=== PATIENT | male | born 1960 | race Caucasian/White ===

== ENCOUNTER → 2016-12-22 | Outpatient (CLI) | payer OTHER ==
[~2016-12-22] MED LIST: MOTRIN800 MG PO
== END | disposition home or self-care (01) ==
LOC: RAD 19:01
DX: M79.645 Pain in left finger(s) (principal); Z91.81 History of falling

== ENCOUNTER → 2017-05-20 | Outpatient (CLI) | payer OTHER ==
[2017-05-20 09:36] LABS: BASO # 0.1 10*3/uL (0.0-0.1); BASO % 1.3 % (0.0-1.0); EOS # 0.7 10*3/uL (0.0-0.4); EOS % 9.2 % (1.0-4.0); HEMATOCRIT 40.5 % (42.0-52.0); HEMOGLOBIN 13.4 g/dl (14.0-18.0); LYMPH % 28.1 % (27.0-41.0); MEAN CELL VOLUME 81.5 fl (80.0-94.0); MEAN CORPUSCULAR HGB CONC 33.1 g/dl (33.0-37.0); MEAN PLATELET VOLUME 10.3 fl (9.6-12.3); MONO # 0.7 10*3/uL (0.1-1.0); MONO % 10.3 % (3.0-9.0); NEUT # 3.6 10*3/uL (2.3-7.9); NEUT % 50.7 % (47.0-73.0); PLATELET COUNT AUTOMATED 263 10*3/uL (130-400); RED BLOOD COUNT 4.97 10*6/uL (4.50-5.90); RED CELL DISTRI WIDTH 13.9 % (0-14.5); WHITE BLOOD COUNT 7.1 10*3/uL (4.8-10.8)
[2017-05-20 10:04] LABS: ALBUMIN 3.8 gm/dl (3.1-4.5); ALKALINE PHOSPHATASE 84 U/L (45-117); BUN 20 mg/dl (7-24); CHLORIDE 107 mmol/L (98-107); CHOLESTEROL 129 mg/dL (<200); CREATININE 0.76 mg/dL (0.70-1.30); HDL CHOLESTEROL 43 mg/dl (40-60); LDL CHOLESTEROL 68 mg/dL (9-159); POTASSIUM 4.1 mmol/L (3.5-5.1); SGOT/AST 16 IU/L (3-35); SGPT/ALT 28 U/L (12-78); SODIUM 141 mmol/L (136-145); TOTAL PROTEIN 7.3 gm/dL (6.4-8.2); TRIGLYCERIDES 88 mg/dl (<150); VLDL CHOLESTEROL 18 mg/dL (6-40)
== END | disposition home or self-care (01) ==
LOC: LAB 09:00
PROVIDERS: Internal Medicine
DX: I10 Essential (primary) hypertension (principal); E78.2 Mixed hyperlipidemia

== ENCOUNTER → 2017-07-11 | Outpatient (CLI) | payer OTHER | END | disposition home or self-care (01) | LOC: ORTHO 00:59 | DX: G56.02 Carpal tunnel syndrome, left upper limb (principal) ==

== ENCOUNTER → 2017-08-23 | Outpatient (CLI) | payer OTHER ==
[~2017-08-23] MED LIST changes: +ATORVASTATIN CA10 M1 PO; +IBU800 M1 PO; +VALSARTAN160 MG PO
[2017-08-23 15:16] LABS: BASO # 0.1 10*3/uL (0.0-0.1); BASO % 1.5 % (0.0-1.0); EOS # 0.5 10*3/uL (0.0-0.4); EOS % 8.1 % (1.0-4.0); HEMATOCRIT 43.4 % (42.0-52.0); HEMOGLOBIN 14.5 g/dl (14.0-18.0); LYMPH % 30.5 % (27.0-41.0); MEAN CELL VOLUME 81.3 fl (80.0-94.0); MEAN CORPUSCULAR HGB 27.2 pg (27.0-31.0); MEAN CORPUSCULAR HGB CONC 33.4 g/dl (33.0-37.0); MEAN PLATELET VOLUME 10.4 fl (9.6-12.3); MONO # 0.7 10*3/uL (0.1-1.0); NEUT # 3.2 10*3/uL (2.3-7.9); NEUT % 48.6 % (47.0-73.0); PLATELET COUNT AUTOMATED 276 10*3/uL (130-400); RED BLOOD COUNT 5.34 10*6/uL (4.50-5.90); RED CELL DISTRI WIDTH 14.4 % (0-14.5); WHITE BLOOD COUNT 6.7 10*3/uL (4.8-10.8)
[2017-08-23 15:25] LABS: BUN 20 mg/dl (7-24); CHLORIDE 106 mmol/L (98-107); POTASSIUM 3.7 mmol/L (3.5-5.1); SODIUM 139 mmol/L (136-145)
== END | disposition home or self-care (01) ==
LOC: LAB 13:32
PROVIDERS: Orthopaedic Surgery
DX: Z01.818 Encounter for other preprocedural examination (principal); I10 Essential (primary) hypertension; Z87.891 Personal history of nicotine dependence; G56.02 Carpal tunnel syndrome, left upper limb

== ENCOUNTER → 2017-08-29 | Day surgery (SDC) | payer OTHER ==
[2017-08-23 13:58] VITALS: BP 143/82
[~2017-08-29] VITALS: Ht 167.6 cm; Wt 97.5 kg
[~2017-08-29] MED LIST changes: +PERCOCET 5-3251 EACH PO; +ZOFRAN4 MG PO
[2017-08-29 07:08] VITALS: BP 116/62
[2017-08-29 08:08] VITALS: BP 115/75
[2017-08-29 08:23] VITALS: BP 116/81
[2017-08-29 08:37] VITALS: BP 124/76
== END ==
LOC: SDC 08-23 14:00
DX: G56.02 Carpal tunnel syndrome, left upper limb (principal); M65.9 Synovitis and tenosynovitis, unspecified; I10 Essential (primary) hypertension; E78.00 Pure hypercholesterolemia, unspecified; Z98.890 Other specified postprocedural states; Z82.49 Family history of ischemic heart disease and other diseases of the circulatory system; Z87.891 Personal history of nicotine dependence

== ENCOUNTER → 2018-03-09 | Day surgery (SDC) | payer OTHER ==
[~2018-03-09] VITALS: Ht 167.6 cm; Wt 104.3 kg
--- NOTE | ~2018-03-09 | PROC NOTE ---
[place], [place] PROCEDURE NOTE [id number] UNIT #: [id number] ROOM: DOCTOR: ANDREE RAMOS MD BIRTHDATE: [birth year] DOS: 03/09/2018 PREOPERATIVE DIAGNOSIS: Screening examination. POSTOPERATIVE DIAGNOSIS: Normal colon. PROCEDURE: Colonoscopy. ENDOSCOPIST: Andree Ramos MD SURVEY FIELD TECHNICIAN: VALERIY. ANESTHESIA: MAC. INDICATIONS: This is a 57-year-old gentleman who is here for a screening examination. The procedure and its complications were explained to the patient in detail preoperatively. Complications that were discussed included, but were not limited to bleeding, missed lesions, colon perforation, and prolonged pain. He agreed to proceed. DESCRIPTION OF PROCEDURE: After identifying the patient, the patient was brought to the operating suite and laid in the left lateral position. After IV sedation was administered, a timeout procedure was called and a digital rectal exam was performed. This was within normal limits. An adult colonoscope was now introduced into the anal canal and advanced sequentially into the rectum, sigmoid colon, descending colon, transverse colon and ascending colon right up to the cecum. Upon reaching the cecum, the scope was withdrawn. Total withdrawal time was approximately 6 minutes and 50 seconds. There were no obvious lesions that could be identified during the process of the withdrawal. This was confirmed upon visualizing the entire colon. Upon reaching the rectum, the scope was withdrawn and the patient was brought back to the recovery room in stable fashion. There were no complications. Dr. Andree Ramos, the attending endoscopist, was present throughout the operating case. Based on these findings, the patient is recommended to have another colonoscopy in 10 years or sooner if he developed any new complications or any new symptoms. These findings were discussed with the patient's in the recovery room. Andree Ramos MD CM:PROCNOTE:PROCEDURE NOTE ANDREE RAMOS MD
[2018-03-09 08:35] VITALS: BP 131/69
[2018-03-09 09:19] VITALS: BP 122/68
[2018-03-09 09:34] VITALS: BP 121/74
[2018-03-09 09:49] VITALS: BP 162/80
== END | disposition home or self-care (01) ==
LOC: SDC 03-02 04:06
DX: Z12.11 Encounter for screening for malignant neoplasm of colon (principal); I10 Essential (primary) hypertension; E78.00 Pure hypercholesterolemia, unspecified; M19.90 Unspecified osteoarthritis, unspecified site; E66.9 Obesity, unspecified; Z68.37 Body mass index [BMI] 37.0-37.9, adult; Z98.890 Other specified postprocedural states; Z79.899 Other long term (current) drug therapy

== ENCOUNTER → 2019-12-27 | Outpatient (CLI) | payer SELFPAY | END | disposition home or self-care (01) | LOC: RESCLI 08:41 | DX: I10 Essential (primary) hypertension (principal); E55.9 Vitamin D deficiency, unspecified; M19.131 Post-traumatic osteoarthritis, right wrist; E78.2 Mixed hyperlipidemia; J30.1 Allergic rhinitis due to pollen; G56.02 Carpal tunnel syndrome, left upper limb; E66.01 Morbid (severe) obesity due to excess calories; E78.1 Pure hyperglyceridemia; R73.9 Hyperglycemia, unspecified; G89.29 Other chronic pain; M54.5 Low back pain; Z98.890 Other specified postprocedural states; Z76.89 Persons encountering health services in other specified circumstances; Z79.899 Other long term (current) drug therapy ==

== ENCOUNTER → 2020-01-06 | Outpatient (CLI) | payer SELFPAY | END | disposition home or self-care (01) | LOC: LAB 09:35 | DX: E55.9 Vitamin D deficiency, unspecified (principal); Z76.89 Persons encountering health services in other specified circumstances ==

== ENCOUNTER → 2020-01-14 | Outpatient (CLI) | payer SELFPAY | END | disposition home or self-care (01) | LOC: RESCLI 01:44 | DX: E55.9 Vitamin D deficiency, unspecified (principal); I10 Essential (primary) hypertension; E78.2 Mixed hyperlipidemia; M19.90 Unspecified osteoarthritis, unspecified site; Z79.899 Other long term (current) drug therapy; Z98.890 Other specified postprocedural states ==

== ENCOUNTER → 2020-04-28 | Outpatient (CLI) | payer SELFPAY | END | disposition home or self-care (01) | LOC: RESCLI 00:38 | PROVIDERS: ATTEND Internal Medicine | DX: Z23 Encounter for immunization (principal); M54.5 Low back pain; E55.9 Vitamin D deficiency, unspecified; I10 Essential (primary) hypertension; E78.2 Mixed hyperlipidemia ==

== ENCOUNTER → 2020-11-24 | Outpatient (CLI) | payer SELFPAY ==
[2020-11-24 09:38] LABS: BASO # 0.1 10*3/uL (0.0-0.1); BASO % 1.1 % (0.0-1.0); EOS # 0.8 10*3/uL (0.0-0.4); EOS % 9.9 % (1.0-4.0); HEMATOCRIT 42.4 % (42.0-52.0); LYMPH # 1.7 10*3/uL (1.3-4.4); LYMPH % 21.4 % (27.0-41.0); MEAN CORPUSCULAR HGB 26.8 pg (27.0-31.0); MEAN CORPUSCULAR HGB CONC 32.3 g/dl (33.0-37.0); MEAN PLATELET VOLUME 10.1 fl (9.6-12.3); MONO # 0.9 10*3/uL (0.1-1.0); MONO % 10.8 % (3.0-9.0); NEUT # 4.6 10*3/uL (2.3-7.9); NEUT % 56.6 % (47.0-73.0); PLATELET COUNT AUTOMATED 262 10*3/uL (130-400); RED BLOOD COUNT 5.11 10*6/uL (4.50-5.90); RED CELL DISTRI WIDTH 14.4 % (0-14.5); WHITE BLOOD COUNT 8.1 10*3/uL (4.8-10.8)
[2020-11-24 10:08] LABS: ALBUMIN 3.9 gm/dl (3.1-4.5); ALKALINE PHOSPHATASE 70 U/L (45-117); BUN 20 mg/dl (7-24); CHLORIDE 105 mmol/L (98-107); CHOLESTEROL 232 mg/dL (<200); LDL CHOLESTEROL 140 mg/dL (9-159); SGOT/AST 27 IU/L (3-35); SGPT/ALT 42 U/L (12-78); SODIUM 137 mmol/L (136-145); TOTAL PROTEIN 7.4 gm/dL (6.4-8.2); TRIGLYCERIDES 268 mg/dl (<150)
[2020-11-24 10:51] LABS: VITAMIN D, 25-HYDROXY 24.8 ng/mL (30-100)
== END | disposition home or self-care (01) ==
LOC: RESCLI 00:19
PROVIDERS: Student in an Organized Health Care Education/Training Program; ATTEND Internal Medicine
DX: M54.5 Low back pain (principal); I10 Essential (primary) hypertension; E55.9 Vitamin D deficiency, unspecified; E78.2 Mixed hyperlipidemia; Z79.899 Other long term (current) drug therapy; Z98.890 Other specified postprocedural states

== ENCOUNTER → 2021-02-23 | Outpatient (CLI) | payer OTHER ==
[2021-02-23 10:44] LABS: BASO # 0.1 10*3/uL (0.0-0.1); BASO % 0.9 % (0.0-1.0); EOS # 0.5 10*3/uL (0.0-0.4); EOS % 6.9 % (1.0-4.0); HEMATOCRIT 40.8 % (42.0-52.0); LYMPH # 1.9 10*3/uL (1.3-4.4); LYMPH % 25.5 % (27.0-41.0); MEAN CELL VOLUME 82.6 fl (80.0-94.0); MEAN CORPUSCULAR HGB 26.7 pg (27.0-31.0); MEAN CORPUSCULAR HGB CONC 32.4 g/dl (33.0-37.0); MEAN PLATELET VOLUME 10.2 fl (9.6-12.3); NEUT # 3.9 10*3/uL (2.3-7.9); NEUT % 53.4 % (47.0-73.0); PLATELET COUNT AUTOMATED 259 10*3/uL (130-400); RED BLOOD COUNT 4.94 10*6/uL (4.50-5.90); RED CELL DISTRI WIDTH 14.4 % (0-14.5); WHITE BLOOD COUNT 7.4 10*3/uL (4.8-10.8)
[2021-02-23 11:14] LABS: ALBUMIN 3.8 gm/dl (3.1-4.5); BUN 17 mg/dl (7-24); CHLORIDE 108 mmol/L (98-107); CHOLESTEROL 136 mg/dL (<200); CREATININE 0.78 mg/dL (0.70-1.30); POTASSIUM 3.9 mmol/L (3.5-5.1); SGOT/AST 24 IU/L (3-35); SGPT/ALT 38 U/L (12-78); SODIUM 139 mmol/L (136-145); TRIGLYCERIDES 129 mg/dl (<150)
[2021-02-23 11:16] LABS: ALKALINE PHOSPHATASE 87 U/L (45-117); LDL CHOLESTEROL 72 mg/dL (9-159); TOTAL PROTEIN 7.4 gm/dL (6.4-8.2)
== END | disposition home or self-care (01) ==
LOC: RESCLI 00:22
PROVIDERS: Student in an Organized Health Care Education/Training Program; ATTEND Internal Medicine
DX: I10 Essential (primary) hypertension (principal); E78.2 Mixed hyperlipidemia; R05 Cough; E55.9 Vitamin D deficiency, unspecified; H10.11 Acute atopic conjunctivitis, right eye; H57.89 Other specified disorders of eye and adnexa; E66.01 Morbid (severe) obesity due to excess calories; Z79.899 Other long term (current) drug therapy; Z98.890 Other specified postprocedural states

== ENCOUNTER 2022-05-27 16:26 | Emergency (ER) | payer OTHER ==
[~2022-05-27] VITALS: Ht 167.6 cm; Wt 111.1 kg
[2022-05-27 17:56] LABS: HEMATOCRIT 48.1 % (42.0-52.0); MEAN CELL VOLUME 83.8 fl (80.0-94.0); MEAN CORPUSCULAR HGB 27.7 pg (27.0-31.0); MEAN CORPUSCULAR HGB CONC 33.1 g/dl (33.0-37.0); MEAN PLATELET VOLUME 10.4 fl (9.6-12.3); PLATELET COUNT AUTOMATED 281 10*3/uL (130-400); RED BLOOD COUNT 5.74 10*6/uL (4.50-5.90); RED CELL DISTRI WIDTH 14.3 % (0-14.5); WHITE BLOOD COUNT 13.9 10*3/uL (4.8-10.8)
[2022-05-27 18:05] LABS: MANUAL DIFF REFLEX YES
[2022-05-27 18:11] LABS: ALKALINE PHOSPHATASE 95 U/L (45-117); BUN 18 mg/dl (7-24); SGPT/ALT 87 U/L (12-78); TOTAL PROTEIN 8.4 gm/dL (6.4-8.2)
[2022-05-27 18:22] LABS: CHLORIDE 103 mmol/L (98-107); POTASSIUM 4.1 mmol/L (3.5-5.1); SODIUM 136 mmol/L (136-145)
[2022-05-27 18:59] LABS: ATYPICAL LYMPHS 2 % (0-0); BASOPHILS 1 % (0-1); PLATELET SUFFICIENCY NORMAL (NORMAL); TOTAL CELLS COUNTED 100 #CELLS
[2022-05-28 06:22] VITALS: BP 123/66
== END 2022-05-28 10:57 | disposition short-term general hospital (02) ==
LOC: ED 16:26
PROVIDERS: Nurse Practitioner Family
DX: J35.1 Hypertrophy of tonsils (principal); Z20.822 Contact with and (suspected) exposure to COVID-19; Z79.899 Other long term (current) drug therapy

== ENCOUNTER 2022-06-09 19:23 | Emergency (ER) | payer OTHER ==
[~2022-06-09] VITALS: Ht 167.6 cm; Wt 108.9 kg
[2022-06-09] MEDS ORDERED: HYDROCODONE-AC1 EAC1 PO (22:11)
[2022-06-09 23:53] VITALS: BP 141/83
== END 2022-06-10 00:39 | disposition home or self-care (01) ==
LOC: ED 19:23
DX: S43.085A Other dislocation of left shoulder joint, initial encounter (principal); W18.30XA Fall on same level, unspecified, initial encounter; Y93.01 Activity, walking, marching and hiking; Y92.69 Other specified industrial and construction area as the place of occurrence of the external cause; Y99.9 Unspecified external cause status

== ENCOUNTER → 2022-07-12 | Outpatient (CLI) | payer OTHER ==
[~2022-07-12] MED LIST changes: +HYDROCODONE-AC1 EAC1 PO
== END | disposition home or self-care (01) ==
LOC: MRI 01:18
PROVIDERS: ATTEND Orthopaedic Surgery
DX: S41.012A Laceration without foreign body of left shoulder, initial encounter (principal); M21.822 Other specified acquired deformities of left upper arm; S43.432A Superior glenoid labrum lesion of left shoulder, initial encounter; S46.912A Strain of unspecified muscle, fascia and tendon at shoulder and upper arm level, left arm, initial encounter; M75.122 Complete rotator cuff tear or rupture of left shoulder, not specified as traumatic; X58.XXXA Exposure to other specified factors, initial encounter; Y93.89 Activity, other specified; Y92.89 Other specified places as the place of occurrence of the external cause; Y99.8 Other external cause status

== ENCOUNTER → 2022-07-28 | Outpatient (CLI) | payer OTHER | END | disposition home or self-care (01) | LOC: CARD 09:55 | PROVIDERS: ATTEND Anesthesiology | DX: Z01.818 Encounter for other preprocedural examination (principal); S43.432A Superior glenoid labrum lesion of left shoulder, initial encounter; X58.XXXA Exposure to other specified factors, initial encounter; Y93.89 Activity, other specified; Y92.89 Other specified places as the place of occurrence of the external cause; Y99.8 Other external cause status ==

== ENCOUNTER → 2022-08-23 | Outpatient (CLI) | payer OTHER | END | disposition home or self-care (01) | LOC: RESCLI 02:14 | PROVIDERS: ATTEND Internal Medicine | DX: E78.5 Hyperlipidemia, unspecified (principal); I10 Essential (primary) hypertension; E55.9 Vitamin D deficiency, unspecified; M54.50 Low back pain, unspecified; Z98.890 Other specified postprocedural states; Z79.899 Other long term (current) drug therapy ==

== ENCOUNTER → 2022-08-30 | Outpatient (CLI) | payer OTHER ==
[2022-08-30 08:14] LABS: CHOLESTEROL 206 mg/dL (<200); LDL CHOLESTEROL 133 mg/dL (9-159); TRIGLYCERIDES 202 mg/dl (<150)
== END | disposition home or self-care (01) ==
LOC: LAB 07:14
PROVIDERS: Family Medicine; ATTEND Student in an Organized Health Care Education/Training Program
DX: E78.5 Hyperlipidemia, unspecified (principal); E55.9 Vitamin D deficiency, unspecified

== ENCOUNTER → 2023-02-01 | Outpatient (CLI) | payer OTHER ==
[2023-02-01 16:45] LABS: BASO # 0.1 10*3/uL (0.0-0.1); BASO % 1.1 % (0.0-1.0); EOS # 0.5 10*3/uL (0.0-0.4); EOS % 5.4 % (1.0-4.0); LYMPH # 1.9 10*3/uL (1.3-4.4); LYMPH % 21.6 % (27.0-41.0); MEAN CELL VOLUME 82.1 fl (80.0-94.0); MEAN CORPUSCULAR HGB 26.9 pg (27.0-31.0); MEAN CORPUSCULAR HGB CONC 32.8 g/dl (33.0-37.0); MEAN PLATELET VOLUME 10.5 fl (9.6-12.3); MONO # 1.1 10*3/uL (0.1-1.0); MONO % 12.1 % (3.0-9.0); NEUT # 5.2 10*3/uL (2.3-7.9); NEUT % 58.3 % (47.0-73.0); PLATELET COUNT AUTOMATED 217 10*3/uL (130-400); RED BLOOD COUNT 5.24 10*6/uL (4.50-5.90); RED CELL DISTRI WIDTH 14.1 % (0-14.5); WHITE BLOOD COUNT 8.9 10*3/uL (4.8-10.8)
[2023-02-01 17:14] LABS: BUN 16 mg/dl (9-23); CHLORIDE 106 mmol/L (98-107); POTASSIUM 4.2 mmol/L (3.4-5.1); TOTAL PROTEIN 7.1 gm/dL (6.0-8.0)
== END | disposition home or self-care (01) ==
LOC: RESCLI 15:13
PROVIDERS: Internal Medicine; ATTEND Internal Medicine
DX: Z13.6 Encounter for screening for cardiovascular disorders (principal); I11.9 Hypertensive heart disease without heart failure; E55.9 Vitamin D deficiency, unspecified; Z98.890 Other specified postprocedural states; Z79.899 Other long term (current) drug therapy

== ENCOUNTER 2023-10-09 18:20 | Emergency (ER) | payer OTHER ==
[~2023-10-09] VITALS: Ht 167.6 cm; Wt 117.9 kg
[2023-10-09] MEDS ORDERED: Acetaminophen/Oxycodone 5 MG/325 MG TABLET PO ONE (18:25)
[2023-10-09 18:33] VITALS: BP 175/57
[2023-10-09] MEDS ORDERED: PERCOCET 5-3251 EACH PO (18:45)
[2023-10-09] MEDS ORDERED: PREDNISONE20 M1 PO (18:45)
== END 2023-10-09 18:53 | disposition home or self-care (01) ==
LOC: ED 18:20
DX: M25.562 Pain in left knee (principal); M10.9 Gout, unspecified; I10 Essential (primary) hypertension; E78.00 Pure hypercholesterolemia, unspecified; Z98.890 Other specified postprocedural states

== ENCOUNTER → 2024-12-06 | Outpatient (CLI) | payer SELFPAY ==
[~2024-12-06] MED LIST changes: +PREDNISONE20 M1 PO
== END | disposition home or self-care (01) ==
LOC: RESCLI 12:19
PROVIDERS: ATTEND Internal Medicine
DX: R31.9 Hematuria, unspecified (principal); I10 Essential (primary) hypertension; E55.9 Vitamin D deficiency, unspecified; M19.90 Unspecified osteoarthritis, unspecified site; E78.5 Hyperlipidemia, unspecified; Z79.899 Other long term (current) drug therapy; Z98.890 Other specified postprocedural states

== ENCOUNTER → 2024-12-26 | Outpatient (CLI) | payer SELFPAY ==
[2024-12-26 10:25] LABS: BASO # 0.1 10*3/uL (0.0-0.1); BASO % 1.2 % (0.0-1.0); EOS # 0.4 10*3/uL (0.0-0.4); EOS % 5.4 % (1.0-4.0); HEMATOCRIT 44.7 % (42.0-52.0); MEAN CELL VOLUME 82.9 fl (80.0-94.0); MEAN CORPUSCULAR HGB CONC 31.3 g/dl (33.0-37.0); MEAN PLATELET VOLUME 10.2 fl (9.6-12.3); MONO # 0.7 10*3/uL (0.1-1.0); MONO % 10.2 % (3.0-9.0); NEUT % 57.4 % (47.0-73.0); PLATELET COUNT AUTOMATED 240 10*3/uL (130-400); RED BLOOD COUNT 5.39 10*6/uL (4.50-5.90); RED CELL DISTRI WIDTH 14.4 % (0-14.5); WHITE BLOOD COUNT 6.9 10*3/uL (4.8-10.8)
[2024-12-26 10:44] LABS: BILIRUBIN Negative (Negative); BLOOD Negative (Negative); CLARITY Clear (Clear); COLOR Yellow (Yellow); GLUCOSE Negative (Negative); KETONE Negative (Negative); LEUKO ESTERASE Negative (Negative); NITRITE Negative (Negative); SPECIFIC GRAVITY 1.015 (1.001-1.030); UROBILINOGEN 0.2 E.U./dl (0.0-1.0)
[2024-12-26 11:07] LABS: ALKALINE PHOSPHATASE 80 U/L (46-116); BUN 15 mg/dl (9-23); CHLORIDE 103 mmol/L (98-107); CHOLESTEROL 200 mg/dL (<200); LDL CHOLESTEROL 107 mg/dL (9-159); POTASSIUM 4.2 mmol/L (3.4-5.1); SGPT/ALT 44 U/L (5-49); TOTAL PROTEIN 7.2 gm/dL (6.0-8.0); TRIGLYCERIDES 314 mg/dl (<150)
[2024-12-26 11:32] LABS: BACTERIA 1+; MUCOUS 1+
== END | disposition home or self-care (01) ==
LOC: LAB 09:56
PROVIDERS: ATTEND Student in an Organized Health Care Education/Training Program
DX: R31.9 Hematuria, unspecified (principal); Z12.5 Encounter for screening for malignant neoplasm of prostate

== ENCOUNTER → 2024-12-28 | Outpatient (CLI) | payer SELFPAY ==
[2024-12-29 06:37] LABS: MICROALBUMIN/CRT RATIO 12.6 (0.0-30.0)
[2024-12-30 09:07] LABS: MICROALBUMIN EXCRETION RATE 16.5 ug/min (0.0-20.0)
== END | disposition home or self-care (01) ==
LOC: LAB 09:11
PROVIDERS: Student in an Organized Health Care Education/Training Program; ATTEND Registered Nurse
DX: R31.9 Hematuria, unspecified (principal)

== ENCOUNTER → 2025-01-07 | Outpatient (CLI) | payer SELFPAY | END | disposition home or self-care (01) | LOC: RESCLI 08:39 | PROVIDERS: ATTEND Internal Medicine | DX: E78.5 Hyperlipidemia, unspecified (principal); E55.9 Vitamin D deficiency, unspecified; M19.90 Unspecified osteoarthritis, unspecified site; Z79.899 Other long term (current) drug therapy ==